=== PATIENT | female | born 1935 | race African-American/Black ===

== ENCOUNTER 2025-01-28 13:36 | Emergency (ER) | payer MEDICARE, OTHER ==
[~2025-01-28] VITALS: Ht 175.3 cm; Wt 87.0 kg
[2025-01-28 13:41] VITALS: O2SAT 97
[2025-01-28 14:30] VITALS: BP 155/72; PULSE 62; RESP 16; TEMP 37.1; O2SAT 99
[2025-01-28] MEDS: SODIUM CHLORIDE 0.9% 500 ML IV ONE (14:45)
[2025-01-28 15:58] LABS: CREATININE 0.7 mg/dL (0.6-1.0)
[2025-01-28 15:59] LABS: UREA NITROGEN BLOOD 12 mg/dL (9-23)
[2025-01-28 16:00] LABS: ASPARTATE AMINOTRANSFERASE 16 IU/L (<34); BILIRUBIN DIRECT < 0.1 mg/dL (<=3.0)
[2025-01-28 16:01] LABS: BILIRUBIN TOTAL 0.4 mg/dL (0.1-1.0); PROTEIN TOTAL 5.8 g/dL (6.0-8.3)
[2025-01-28 16:35] LABS: BASOPHILS % 0.9 % (0.0-2.0); EOSINOPHILS % 2.1 % (0.0-5.0); HEMATOCRIT. 38.4 % (36.0-48.0); HEMOGLOBIN. 11.9 g/dL (12.0-16.0); LYMPHOCYTES % 25.6 % (20.0-50.0); MEAN PLATELET VOLUME 8.5 fl (7.4-10.4); MONOCYTES % 11.5 % (2.0-8.0); NEUTROPHILS % 59.9 % (40.0-76.0); PLATELET 160 x1000/uL (130-400); RED BLOOD CELL COUNT 5.18 mill/uL (4.2-5.4); RED CELL DISTRIBUTION WIDTH 15.6 % (11.6-14.6)
[2025-01-28] MEDS ORDERED: NITR100C MT (17:49)
== END 2025-01-28 19:13 | disposition home or self-care (01) ==
LOC: ER 13:36 → CANBEDREQ 16:09 → ER 19:13
DX: R41.82 Altered mental status, unspecified (principal); F03.90 Unspecified dementia, unspecified severity, without behavioral disturbance, psychotic disturbance, mood disturbance, and anxiety; R06.02 Shortness of breath; R10.20 Pelvic and perineal pain unspecified side; Z79.899 Other long term (current) drug therapy
CPT/HCPCS: 99284; 96360; 80076; 80048; 83880; 83735; 85025; 36415; 93005; J7030